=== PATIENT | female | born 1990 | race Caucasian/White ===

== ENCOUNTER 2019-04-19 20:05 | Emergency (ER) | payer MEDICAID, OTHER ==
[~2019-04-19] VITALS: Ht 147.3 cm; Wt 48.5 kg
[2019-04-19] MEDS ORDERED: DOXYCYCLINE 100 MG (VIBRAMYCIN) TABLET PO STA (20:40)
--- NOTE | 2019-04-19 21:18 | ED Integumentary General ---
General Chief Complaint: Allergic Reaction Stated Complaint: ALL OVER BODY RASH Nursing Triage Note: pt states she recently started to horner and noticed rash and hives to abdomen, upper legs, and buttocks Source: patient Exam Limitations: no limitations History of Present Illness Date Seen by Provider: April 19, 2019 Time Seen by Provider: 20:15 Initial Comments Patient is a 28-year-old female who presents with follicular erythematous rash of torso, extremities starting 1 week ago after using tanning bed. Patient has been treating herself Benadryl cream and Lotrimin. Without improvement fact, the rash has spread. No redness of breath, airway swelling or wheezing. Last menstrual period was greater than 4 weeks ago. Patient has no monogamous relationship with a sterilized partner. Allergies and Home Medications Allergies Coded Allergies: No Known Drug Allergies (Unverified , 04/19/19) Patient Home Medication List Home Medication List Reviewed: Yes Review of Systems Review of Systems Constitutional: see HPI EENTM: see HPI Respiratory: see HPI Cardiovascular: see HPI Musculoskeletal: see HPI Past Jgcyduz-Wqulcv-Vnqzas Hx Past Med/Social Hx: Reviewed Nursing Past Med/Soc Hx Patient Social History Alcohol Use: Denies Use Recreational Drug Use: No Smoking Status: Current Everyday Smoker Type Used: Cigarettes 2nd Hand Smoke Exposure: No Recent Foreign Travel: No Contact w/Someone Who Travel: No Recent Infectious Disease Expo: No Recent Hopitalizations: No Physical Abuse: No Sexual Abuse: No Mistreated: No Fear: No Seasonal Allergies Seasonal Allergies: No Past Medical History Surgeries: Yes Orthopedic Respiratory: No Cardiac: No Neurological: No Genitourinary: No Gastrointestinal: No Musculoskeletal: No Endocrine: No HEENT: No Cancer: No Psychosocial: No Integumentary: No Blood Disorders: No Physical Exam Vital Signs Vital Signs - First Documented 04/19/19 20:15 Temp 98.1 Pulse 92 Resp 12 B/P (MAP) 121/76 (91) Pulse Ox 97 O2 Delivery Room Air Capillary Refill : Less Than 3 Seconds General Appearance: WD/WN, no apparent distress HEENT: normal ENT inspection Neck: full range of motion, supple Respiratory: lungs clear, normal breath sounds Gastrointestinal: soft Skin: other (Diffuse follicular, erthematous rash of torso and upper ext. No facial involvement. No weaping, or desquamation. Appropriatley tender. ) Progress/Results/Core Measures Results/Orders Lab Results Laboratory Tests Test 04/19/19 20:45 Range/Units My Orders Orders - EDWARD SWANSON DO Urine Bedside (04/19/19 20:40) Doxycycline Hyclate Tablet (Vibramycin T (04/19/19 20:40) Hcg,Qualitative Urine (04/19/19 21:07) Vital Signs/I&O 04/19/19 20:15 Temp 98.1 Pulse 92 Resp 12 B/P (MAP) 121/76 (91) Pulse Ox 97 O2 Delivery Room Air Blood Pressure Mean: 91 Departure Communication (Admissions) Folliculitis. First dose of antibiotics given in the emergency department. Impression Primary Impression: Folliculitis Disposition: HOME, SELF-CARE Condition: Unchanged Departure-Patient Inst. Decision time for Depature: 21:18 Referrals: MAYA MG MD (PCP) Primary Care Physician Patient Instructions: Folliculitis (DC) Add. Discharge Instructions: Please complete full course of antibiotics and follow up with your PCP in 3-5 days for re-evaluation. All discharge instructions reviewed with patient and/or family. Voiced understanding. Scripts Doxycycline Hyclate (Doxycycline Hyclate) 100 Mg Tablet 100 MG PO BID, #20 TAB 0 Refills Prov: EDWARD SWANSON DO 04/19/19 EDWARD SWANSON DO April 19, 2019 21:18
[2019-04-19] MEDS ORDERED: DOXY100T2 PO (21:20)
[2019-04-19 21:26] VITALS: BP 108/68
--- OUTSIDE RECORDS SUMMARY | 2019-04-19 23:48 | XMS REPORT | Continuity of Care Document ---
Author Organization Unknown Address Unknown Allergies There is no data. Medications There is no data. Problems There is no data. Procedures There is no data. Results Test Result Range SUREPATH PAP RFX HPV mRNA E6/E7 - 02/08/19 13:53 CLINICAL INFORMATION: NRG LMP: 12-20-18 NRG PREV. PAP: NRG PREV. BX: NRG SOURCE: Endocervix NRG STATEMENT OF ADEQUACY: NRG INTERPRETATION/RESULT: NRG COSMETICS PRESSER: NRG COMMENT NRG Encounters ACCT No. Visit Date/Time Discharge Status Pt. Type Provider Facility Loc./Unit Complaint [id number] 04/05/2019 15:15:00 04/05/2019 23:59:59 [facility] Outpatient SELF, MAYA ARNDT [facility] [id number] 02/07/2019 14:45:00 Document Registration
== END 2019-04-19 21:26 | disposition home or self-care (01) ==
LOC: ER FS 20:06
DX: L73.9 Follicular disorder, unspecified (principal); F17.210 Nicotine dependence, cigarettes, uncomplicated
CPT/HCPCS: 84703; 99283

== ENCOUNTER → 2020-06-09 | Outpatient (CLI) | payer BC, MEDICAID ==
[~2020-06-09] MED LIST: DOXY100T2 PO
--- NOTE | 2020-06-09 14:49 | Diagnostic Imaging Report ---
PROCEDURE: US PELVIC (NON OB) TECHNIQUE: Multiple real-time grayscale images were obtained over the pelvis in various projections transabdominally. INDICATION: Pelvic pain and dysmenorrhea. The uterus is anteverted measuring 8.1 x 3.2 x 5.5 cm. Endometrium is 5 mm in thickness. No myometrial mass is detected. Right ovary measures 3.3 x 2.1 x 3.6 cm and the left ovary measures 3.1 x 1.5 x 2.4 cm. There is blood flow to both ovaries. No adnexal mass or free fluid is detected. IMPRESSION: Unremarkable pelvic ultrasound. Dictated by: Dictated on workstation # [id number]
== END ==
LOC: RAD 13:18
PROVIDERS: ATTEND Obstetrics & Gynecology
DX: N94.5 Secondary dysmenorrhea (principal)
CPT/HCPCS: 76856

== ENCOUNTER 2020-06-19 05:37 | Outpatient (RCR) | payer BC ==
[~2020-06-19] VITALS: Ht 147.3 cm; Wt 50.0 kg
[2020-06-23] MEDS ORDERED: IBUP-1773 PO (09:02)
[2020-06-23] MEDS ORDERED: HYDR-4226 PO (09:02)
== END 2020-06-19 12:34 | disposition home or self-care (01) ==
LOC: PREOP 05:37
PROVIDERS: ATTEND Obstetrics & Gynecology
DX: Z01.812 Encounter for preprocedural laboratory examination (principal); Z20.828 Contact with and (suspected) exposure to other viral communicable diseases; R10.2 Pelvic and perineal pain
CPT/HCPCS: 87635

== ENCOUNTER 2020-06-23 08:31 | Day surgery (SDC) | payer BC ==
[2020-06-23] VITALS (10 sets, daily range): BP systolic 88–115; BP diastolic 56–72
[~2020-06-23] VITALS: Ht 147 cm; Wt 50.0 kg
--- OUTSIDE RECORDS SUMMARY | 2020-06-23 08:36 | XMS REPORT | Continuity of Care Document ---
Author Organization Unknown Address Unknown Phone Unavailable Allergies Active Description Code Type Severity Reaction Onset Reported/Identified Relationship to Patient Clinical Status Yes No Known Drug Allergies [id number] Drug Allergy Unknown N/A 04/19/2019 Yes codeine [id number] Drug Allergy Unknown Nausea 06/17/2020 Yes sulfamethoxazole [id number] Drug Allergy Unknown Nausea 06/17/2020 Yes trimethoprim [id number] Drug Allergy Unknown Nausea 06/17/2020 Medications There is no data. Problems Date Dx Coded Attending Type Code Diagnosis Diagnosed By 04/19/2019 EDWARD SWANSON DO, Ot F17.210 NICOTINE DEPENDENCE, CIGARETTES, UNCOMPL 04/19/2019 EDWARD SWANSON DO Ot L73.9 FOLLICULAR DISORDER, UNSPECIFIED 04/19/2019 EDWARD SWANSON DO Ot R21 RASH AND OTHER NONSPECIFIC SKIN ERUPTION 04/24/2019 EDWARD SWANSON DO, Ot F17.210 NICOTINE DEPENDENCE, CIGARETTES, UNCOMPL 04/24/2019 EDWARD SWANSON DO Ot L73.9 FOLLICULAR DISORDER, UNSPECIFIED 04/24/2019 EDWARD SWANSON DO Ot R21 RASH AND OTHER NONSPECIFIC SKIN ERUPTION 06/11/2020 PELON ORLANDO DO Ot N94.5 SECONDARY DYSMENORRHEA Procedures There is no data. Results Test Result Range SUREPATH PAP RFX HPV mRNA E6/E7 - 13:53 CLINICAL INFORMATION: NRG LMP: 12-20-18 NRG PREV. PAP: NRG PREV. BX: NRG SOURCE: Endocervix NRG STATEMENT OF ADEQUACY: NRG INTERPRETATION/RESULT: NRG LEAD CASTER HELPER: NRG COMMENT NRG Urine beta human chorionic gonadotropin (hCG) measurement - 04/19/19 20:45 Urine beta human chorionic gonadotropin (hCG) measurem ent NEGATIVE NEGATIVE GC/CHLAMYDIA (SWAB OR URINE)-RAPID - 10/16 15:36 CHLAMYDIA TRACHOMATIS RNA, TMA NOT DETECTED NOT DETECTED NEISSERIA GONORRHOEAE RNA, TMA NOT DETECTED NOT DETECTED COMMENT NRG CULTURE, URINE - 05/08/19 15:51 CULTURE, URINE, ROUTINE SEE NOTE NRG TSH - 05/24/19 16:22 TSH 0.49 mIU/L NRG CULTURE, URINE - 11/14/19 09:04 CULTURE, URINE, ROUTINE SEE NOTE NRG Encounters ACCT No. Visit Date/Time Discharge Status Pt. Type Provider Facility Loc./Unit Complaint [id number] 12/05/2019 13:00:00 12/05/2019 23:59: 59 [facility] Outpatient [facility], MAYA Valdovinos [facility] [id number] 11/14/2019 08:00:00 Document Registration [id number] 05/24/2019 16:20:00 Document Registration [id number] 05/08/2019 15:30:00 Document Registration [id number] 02/07/2019 14:45:00 Document Registration [id number] 06/19/2020 05:37:00 020 12:34:00 DIS Outpatient PELON ORLANDO DO [facility] PREOP CHRONIC PELVIC PAIN [id number] 06/09/2020 13:45:00 020 23:59:59 CLS Outpatient PELON ORLANDO DO [facility] RAD CHRONIC FEMALE PELVIC PAIN,SECONDARY DYSMENORRHEA [id number] 04/19/2019 20:06:00 019 21:26:00 DIS Emergency EDWARD SWANSON DO [facility] ER FS ALL OVER BODY RASH [id number] 06/23/2020 10:00:00 P EN Preadmit PELON ORLANDO DO [facility] SDC CHRONIC PELVIC PAIN
--- NOTE | 2020-06-23 08:56 | Progress Note-Pre Operative ---
Pre-Operative Progress Note H&P Reviewed The H&P was reviewed, patient examined and no changes noted. Date Seen by Provider: Jun 23, 2020 Time Seen by Provider: 08:55 Date H&P Reviewed: Jun 23, 2020 Time H&P Reviewed: 08:55 Pre-Operative Diagnosis: CPP, Dysmenorrhea PELON ORLANDO DO Jun 23, 2020 08:56
[2020-06-23] MEDS ORDERED: D5 LR IV SOLUTION 1,000 ML IV SCH (08:57)
[2020-06-23] MEDS ORDERED: ONDANSETRON 4 MG/2 ML (SDV) Z0FRAN IVP PRN ×2 (09:00→09:45)
[2020-06-23] MEDS ORDERED: KETOROLAC 30 MG/ML VIAL IVP ONE (09:00)
[2020-06-23] MEDS ORDERED: HYDROcodone/APAP 5 MG/325 MG (LORTAB) TAB PO PRN (09:00)
--- NOTE | 2020-06-23 09:01 | Discharge Inst-Women's Service ---
Discharge Inst-Women's Serv Depart Medication/Instructions New, Converted or Re-Newed RX: RX on Chart Problems Reviewed?: Yes Consults/Follow Up Additional Follow Up: Yes Orders/Referrals Dr. Cagle in 7-10 days Activity Activity: Activity as Tolerated Driving Instructions: No Driving for 1 Week NO SMOKING: NO SMOKING Nothing Inside Vagina: No Douching, No [place], No Tampons Diet Discharge Diet: No Restrictions Symptoms to Report to : Bleeding Excessive, Pain Increased, Fever Over 101 Degrees F, Vaginal Bleeding Increase, Questions/Concerns For Any Problems or Questions: Contact Your Physician Skin/Wound Care Infection Signs and Symptoms: Increased Redness, Foul Odor of Wound, Increased Drainage, Skin Itchy or Has a Rash, Increased Swelling, Temperature Above 101 F Operative Area Clean and Dry: Keep Incision Clean/Dry Stitches/[place]/Dermabond: Dermabond, Care of Stitches Bathing Instructions: PELON Carl DO Jun 23, 2020 09:00
[2020-06-23] MEDS ORDERED: HYDR-4226 PO (09:02)
[2020-06-23] MEDS ORDERED: IBUP-1773 PO (09:02)
[2020-06-23] MEDS ORDERED: BUPIVACAINE 0.25% 30 ML (SENSORCAINE) VIAL ONE (09:08)
[2020-06-23] MEDS ORDERED: LACTATED RINGERS 1,000 ML IV PRN (09:11)
[2020-06-23] MEDS ORDERED: ONDANSETRON 4 MG/2 ML (SDV) Z0FRAN ONE (09:22)
[2020-06-23] MEDS ORDERED: MIDAZOLAM 2 MG/2 ML (VERSED) VIAL ONE (09:22)
[2020-06-23] MEDS ORDERED: proPOfol 200 MG/20 ML (DIPRIVAN) VIAL IV ONE (09:22)
[2020-06-23] MEDS ORDERED: fentaNYL INJECTION 100 MCG/2 ML AMP ONE (09:22)
[2020-06-23] MEDS ORDERED: LIDOCAINE PF 2% 5 ML (XYLOCAINE) VIAL ONE (09:22)
[2020-06-23] MEDS ORDERED: SEVOFLURANE (ULTANE) 15 ML INHAL SOLN ONE ×3 (09:22→10:06)
[2020-06-23] MEDS ORDERED: morphine INJ 10 MG/ML 1ML (SYR OR VIAL) IVP ONE (09:45)
[2020-06-23] MEDS ORDERED: NEOSTIGMINE 3 MG/3 ML VIAL ONE (10:06)
[2020-06-23] MEDS ORDERED: GLYCOPYRROLATE 0.2 MG/ML (ROBINUL) 2 ML VIAL ONE (10:06)
[2020-06-23] MEDS ORDERED: ROCURONIUM 10 MG/ML 5 ML SYRINGE IV ONE (10:12)
[2020-06-23] MEDS ORDERED: SUGAMMADEX 500 MG/5 ML VIAL (BRIDION) IV ONE (11:31)
--- NOTE | 2020-06-23 15:02 | OPERATIVE REPORT ---
DATE OF SERVICE: PREOPERATIVE DIAGNOSES: 1. A 29-year-old female with chronic pelvic pain. 2. Dysmenorrhea. 3. Dyspareunia. POSTOPERATIVE DIAGNOSES: 1. A 29-year-old female with chronic pelvic pain. 2. Dysmenorrhea. 3. Dyspareunia. 4. Adhesions of the descending sigmoid colon to the left ovary. SURGEON: Raheel Cagle DO ACCOUNTING BOOKKEEPER: JALEEL Dunne. ESTIMATED BLOOD LOSS: Minimal. URINE OUTPUT: 50 mL clear at the end of the procedure. FLUIDS: 1000 mL lactated Ringer's solution. FINDINGS: A grossly normal appearing external female genitalia, grossly normal appearing uterus, normal appearing bilateral ovaries and fallopian tubes. There are some filmy adhesions of the uteroovarian ligament to the descending sigmoid colon as well as a peritoneal implant that is yellow in the right ovarian fossa. SPECIMEN SENT: Peritoneal biopsy of right ovarian fossa. INDICATIONS FOR PROCEDURE: This 29-year-old female is a patient that was consulted to me from Dr. Barreto for concerns of chronic pelvic pain, dysmenorrhea, dyspareunia. The patient underwent control with oral contraceptive trials as well as Depo-Provera, both of which gave her little to no results as far as pain goes. I discussed with the patient proceeding with an IUD or we also briefly discussed GnRH antagonist medications; however, at first, we would like to know what we are treating, and she had concerns due to her family history of women having issues with gynecologic pain requiring hysterectomy before the age of 30. She wished to proceed with diagnostic laparoscopy after it was discussed. Risks of this procedure were discussed with the patient in detail including risk of bleeding, infection, damage to surrounding structures including, but not limited to bowel, bladder, ureter, kidneys, possible need for reoperation, postoperative complications that could occur, recovery timeframe, risk from anesthesia and even . Everything was discussed with the patient in detail, consent was obtained in the preoperative area, the patient was taken to the operating room. OPERATIVE REPORT IN DETAIL: Once in the operating room, general anesthesia was found to be adequate, placed in dorsal lithotomy position, prepped and draped in normal sterile fashion. A timeout was performed. A Roque catheter was placed using sterile technique. A weighted speculum was inserted into the patient's vagina. Right angle retractor was used to visualize the cervix. It was grasped at 12 o'clock position using a long Allis clamp. I then gently sound the uterine cavity depth was found to be 8 cm. I then gently dilated the cervix using Hegar dilators to allow placement of a Kronner uterine manipulator to a depth of 8 cm at which point, this was in place, I removed all the other instruments from the patient's vagina. I performed a change of gloves and took my attention to the abdomen where infraumbilically I infiltrated this area using 0.25% Marcaine. I made a 5 mm incision with a knife and directed Veress needle through the incision, intraperitoneal placement was confirmed using saline drop test. I proceeded with insufflation using CO2 gas and opening pressure of 4 mmHg is noted. I proceeded to max pressure of 15 mmHg, at which point I removed the Veress needle and introduced a 5 mm blunt laparoscopic trocar. Once this was in place, I am able to confirm intraperitoneal placement using the laparoscope. A brief scan of the upper abdominal anatomy appears grossly normal. I then had the patient placed in steep Trendelenburg we were able to visualize all my pelvic anatomy as discussed in my findings above. I placed a second trocar, this is the suprapubic trocar and the skin was infiltrated using 0.25% Marcaine and 5 mm incision was made with a knife and the trocars placed under direct visualization and laparoscope. Once this was in place, I take down the filmy adhesions previously discussed using an EndoShears device. I also biopsied the peritoneal implant in the same fashion using EndoShears and biopsying it and removing it through the trocar site after which there was no active bleeding noted from any of my dissection planes. I evaluated the rest of the uterus, posterior cul-de-sac, posterior ovarian fossae bilaterally. The vesicouterine peritoneum all appear grossly normal with no evidence of endometriosis implants. After the pelvis was then copiously irrigated, I have the patient taken out of steep Trendelenburg where I released insufflation from both trocar sites, I then introduced 10 mL of 0.25% Marcaine into the peritoneal cavity for postoperative pain management and removed both the trocars. The skin was reapproximated using Dermabond. Bandages were placed over the incisions. Roque catheter was removed and Kronner uterine manipulator was removed. The patient tolerated the procedure well and was taken to recovery area in stable condition. Lap and sponge counts were correct at the end of procedure. Instrument count was correct as well. Job ID: [id number] DocumentID: [id number] Dictated Date: 06/23/2020 10:55:35 Rfid Manager Date: 06/23/2020 15:01:54 Dictated By: DO VILLA MERINO
== END 2020-06-23 12:40 | disposition home or self-care (01) ==
LOC: SDC 08:31
PROVIDERS: ATTEND Obstetrics & Gynecology
DX: K65.4 Sclerosing mesenteritis (principal); K66.0 Peritoneal adhesions (postprocedural) (postinfection); N94.5 Secondary dysmenorrhea; N94.10 Unspecified dyspareunia; F41.9 Anxiety disorder, unspecified; F17.210 Nicotine dependence, cigarettes, uncomplicated; Z88.5 Allergy status to narcotic agent; Z88.2 Allergy status to sulfonamides; Z11.2 Encounter for screening for other bacterial diseases
CPT/HCPCS: 36430; 84703; 86850; 86900; 86901; 87081; 94664

== ENCOUNTER → 2020-10-15 | Outpatient (CLI) | payer BC ==
[~2020-10-15] MED LIST changes: +HYDR-4226 PO; +IBUP-1773 PO
== END ==
LOC: LABNPT 15:10
PROVIDERS: ATTEND Family Medicine
DX: N39.0 Urinary tract infection, site not specified (principal)
CPT/HCPCS: 87077; 87088; 87186